=== PATIENT | female | born 2000 | race Two or more races ===

== ENCOUNTER 2021-03-09 23:14 | Emergency (ER) | payer MEDICAID, OTHER ==
[~2021-03-09] VITALS: Ht 160 cm; Wt 65.8 kg
[2021-03-09 23:43] VITALS: BP 101/59
== END 2021-03-10 03:00 | disposition left against medical advice (07) ==
LOC: ER 23:16
DX: R05 Cough (principal); R09.81 Nasal congestion; J34.89 Other specified disorders of nose and nasal sinuses; Z53.21 Procedure and treatment not carried out due to patient leaving prior to being seen by health care provider
CPT/HCPCS: 36415; 71045; 87426

== ENCOUNTER 2023-05-06 16:01 | Emergency (ER) | payer MEDICAID | END 2023-05-06 16:52 | disposition left against medical advice (07) | LOC: ER 16:01 | DX: M79.629 Pain in unspecified upper arm (principal); Z53.21 Procedure and treatment not carried out due to patient leaving prior to being seen by health care provider ==

== ENCOUNTER 2023-10-09 17:27 | Emergency (ER) | payer MEDICAID ==
[~2023-10-09] VITALS: Ht 162.6 cm; Wt 55.9 kg
[2023-10-09 19:04] VITALS: BP 102/72; PULSE 95; RESP 16; TEMP 98.9; O2SAT 98
[2023-10-09] MEDS ORDERED: IBUP1TAB5 PO (20:21)
[2023-10-09] MEDS ORDERED: ZOFR4T PO (20:21)
[2023-10-09] MEDS ORDERED: MECL1TAB42 PO (20:21)
== END 2023-10-09 20:27 | disposition home or self-care (01) ==
LOC: ER 17:27
DX: S06.0X0A Concussion without loss of consciousness, initial encounter (principal); S00.03XA Contusion of scalp, initial encounter; W18.39XA Other fall on same level, initial encounter; Y93.89 Activity, other specified; Y92.89 Other specified places as the place of occurrence of the external cause; Y99.8 Other external cause status
CPT/HCPCS: 70450

== ENCOUNTER 2023-10-17 21:04 | Emergency (ER) | payer MEDICAID ==
[~2023-10-17] VITALS: Ht 165.1 cm; Wt 60.0 kg
[2023-10-17] MEDS: SODIUM CHLORIDE 0.9% 1,000 ML IVB ONE
[~2023-10-17 21:04] MED LIST: IBUP1TAB5 PO; MECL1TAB42 PO; ZOFR4T PO
[2023-10-17 22:46] LABS: Basophils # (auto) 0 10 ^3/uL (0-0.2); Basophils % (auto) 0.4 % (0.0-2.0); Eosinophils # (auto) 0 10 ^3/uL (0-0.8); Eosinophils % (auto) 0.7 % (0.0-7.0); Hematocrit 39.5 % (36.0-46.0); Hemoglobin 13.1 g/dL (12.2-16.2); Lymphocytes # (auto) 1.3 10 ^3/uL (0.4-5.4); Lymphocytes % (auto) 21.6 % (10.0-50.0); Mean Corpuscular Hemoglobin 29.8 pg (28.0-32.0); Mean Corpuscular Hgb Conc. 33.3 g/dL (32.0-36.0); Mean Corpuscular Volume 89.4 fL (80.0-100.0); Monocytes # (auto) 0.3 10 ^3/uL (0-1.3); Monocytes % (auto) 5.4 % (0.0-12.0); Neutrophils # (auto) 4.4 10 ^3/uL (1.6-8.6); Neutrophils % (auto) 71.9 % (37.0-80.0); Nucleated Red Blood Cells % 0.1 %; Red Blood Cells 4.41 10^6/uL (4.0-5.20); Red Cell Distribution Width 13.6 % (11.8-14.3); White Blood Cell 6.1 10^3/uL (4.4-10.8)
[2023-10-17 23:05] LABS: Alanine Aminotransferase 16 U/L (7-40); Albumin 4.6 g/dL (3.2-4.8); Alkaline Phosphatase 59 U/L (46-116); Anion Gap 6 (5-15); Aspartate Aminotransferase 14 U/L (13-40); Bilirubin, Total 0.4 mg/dL (0.2-1.0); Blood Urea Nitrogen 9 mg/dL (9-23); Calcium 9.9 mg/dL (8.7-10.4); Carbon Dioxide 27 mmol/L (20-30); Chloride 106 mmol/L (98-107); Glucose 97 mg/dL (74-106); Lipase 51 U/L (12-53); Potassium 3.2 mmol/L (3.5-5.1); Sodium 139 mmol/L (136-145); Total Protein 6.7 g/dL (5.7-8.2)
[2023-10-18] MEDS: POTASSIUM CHL 20 Meq TABLET PO ONE (01:00)
[2023-10-18] MEDS: ONDANSETRON HCL 4 MG/2 ML VIAL IV ONE (01:12)
[2023-10-18] MEDS: FAMOTIDINE (10MG/ML) 2ML VL IV ONE (01:12)
[2023-10-18] MEDS: KETOROLAC TROMETH 30 MG/ML 1ML VIAL IV ONE (01:12)
[2023-10-18 01:24] VITALS: BP 106/52; PULSE 66; RESP 13; TEMP 98.1; O2SAT 100
[2023-10-18 02:35] LABS: Urine Bacteria FEW /hpf (None Seen); Urine Blood Negative /uL (Negative); Urine Budding Yeast OCCASIONAL /hpf (None Seen); Urine Clarity Turbid (Clear); Urine Color Light-Yellow (Yellow); Urine Protein, UAD Negative (Negative); Urine Specific Gravity 1.015 (1.001-1.035); Urine Urobilinogen Normal (Negative); Urine WBC 7 /hpf (0 - 5)
[2023-10-18] MEDS: cefTRIAXone 1GM/50ML D5W 50 ML IV ONE (03:44)
[2023-10-18] MEDS ORDERED: CEPH500T PO (03:53)
[2023-10-18] MEDS ORDERED: ZOFR4T PO (03:53)
[2023-10-18] MEDS ORDERED: ACET-1304 PO (03:53)
== END 2023-10-18 04:46 | disposition home or self-care (01) ==
LOC: EDBD 21:04 → ER 21:04 → EDUNIT# 21:04 → ER 10-18 04:46
DX: J06.9 Acute upper respiratory infection, unspecified (principal); R10.11 Right upper quadrant pain; Z32.02 Encounter for pregnancy test, result negative
CPT/HCPCS: 36415; 74176; 80053; 81001; 81025; 83690; 85025; 96361; 96365; 96375; 99285; J0696; J1885; J2405; J3490; J7030